=== PATIENT | male | born 1970 | race Asian ===

== ENCOUNTER 2024-02-21 19:23 | Inpatient (IN) | payer OTHER ==
[~2024-02-21] VITALS: Ht 188 cm; Wt 95.3 kg
[~2024-02-21 19:23] MED LIST: ASPI-1406 PO; IPRA3AMP9 HHN; LIP40 PO; LISI10TA26 PO; METO25TA6 PO; NITR0.4T49 SL; NITR1OIN TD; ONDA4VIA22 IV; TOPUD PO; [UNRECOGNIZED DRUG - OTHER] IV
[2024-02-21 20:55] LABS: BASOPHILS % 0.7 % (0.0-2.0); EOSINOPHILS % 4.3 % (0.0-5.0); HEMATOCRIT. 35.2 % (42.0-52.0); HEMOGLOBIN. 11.8 g/dL (14.0-18.0); LYMPHOCYTES % 23.9 % (20.0-50.0); MEAN CORPUSCULAR HEMOGLOBIN 32.1 pg (28.0-32.0); MEAN CORPUSCULAR HGB CONC 33.5 g/dL (31.0-37.0); MEAN CORPUSCULAR VOLUME 96.1 fL (80.0-94.0); MEAN PLATELET VOLUME 7.6 fl (7.4-10.4); MONOCYTES % 12.8 % (2.0-8.0); NEUTROPHILS % 58.3 % (40.0-76.0); PLATELET 283 x1000/uL (130-400); RED BLOOD CELL COUNT 3.66 mill/uL (4.7-6.1); RED CELL DISTRIBUTION WIDTH 13.9 % (11.6-14.6); WHITE BLOOD COUNT 5.5 x1000/uL (4.5-11.0)
[2024-02-21 21:00] LABS: CARBON DIOXIDE 27 mEq/L (21-32); CHLORIDE 108 mEq/L (98-107); POTASSIUM 4.1 mEq/L (3.5-5.1); SODIUM 144 mEq/L (136-145)
[2024-02-21 21:01] LABS: CALCIUM 9.7 mg/dL (8.7-10.4)
[2024-02-21 21:03] LABS: PARTIAL THROMBOPLASTIN TIME 29.3 sec (23.4-31.0); PROTHROMBIN TIME 11.1 sec (9.6-11.0)
[2024-02-21 21:05] LABS: CREATININE 0.9 mg/dL (0.6-1.3)
[2024-02-21 21:06] LABS: GLUCOSE 99 mg/dL (70-105); UREA NITROGEN BLOOD 16 mg/dL (9-23)
[2024-02-21 21:07] LABS: TROPONIN I HIGH SENSITIVITY 14 ng/L (3.0-53)
[2024-02-21] MEDS: PIPERACILLIN/TAZO 3.375G/50ML 50 ML IV ONE (22:31)
[2024-02-21] MEDS: VANCOMYCIN 1G PREMIX 200 ML IV ONE (22:35)
[2024-02-21] MEDS: ASPIRIN 81MG TABLET PO ONE (23:42)
[2024-02-22] VITALS (7 sets, daily range): BP systolic 95–123; BP diastolic 71–92; PULSE 90–114; RESP 14–25; TEMP 36.3918–36.9474; O2SAT 96–100
[2024-02-22] MEDS: IOHEXOL-350 100 ML BOTTLE ONE (00:31)
[2024-02-22] MEDS ORDERED: CLONIDINE 0.1MG TABLET PO PRN (01:15)
[2024-02-22] MEDS ORDERED: ONDANSETRON HCL 4MG/2ML INJ IV PRN (01:15)
[2024-02-22] MEDS ORDERED: ACETAMINOPHEN 325MG TABLET PO PRN (01:15)
[2024-02-22] MEDS ORDERED: MAGNESIUM/ALUMINUM HYDROXIDE/SIMETHICONE 30ML UDC PO PRN (01:15)
[2024-02-22] MEDS ORDERED: NITROGLYCERIN 0.4MG TABLET SL SL PRN (01:15)
[2024-02-22] MEDS ORDERED: IPRATROPIUM/ALBUTEROL 0.5-3(2.5)MG/3ML NEB HHN PRN (01:15)
[2024-02-22 04:40] LABS: CLARITY URINE CLEAR (CLEAR); COLOR URINE YELLOW (YELLOW); GLUCOSE URINE NEGATIVE (NEGATIVE); KETONES URINE 1+ (NEGATIVE); LEUKOCYTE ESTERASE URINE NEGATIVE (NEGATIVE); NITRITE URINE NEGATIVE (NEGATIVE); OCCULT BLOOD URINE NEGATIVE (NEGATIVE); PH URINE 5.5 (4.5-8.0); PROTEIN URINE TRACE (NEGATIVE); SPECIFIC GRAVITY URINE 1.076 (1.005-1.030)
[2024-02-22 04:54] LABS: *AMPHETAMINES SCREEN URINE NEGATIVE (NEGATIVE)
[2024-02-22 04:55] LABS: *BARBITURATES SCREEN URINE NEGATIVE (NEGATIVE); *BENZODIAZEPINES SCREEN URINE NEGATIVE (NEGATIVE); *COCAINE SCREEN URINE NEGATIVE (NEGATIVE); CANNABINOID URINE SCREEN NEGATIVE (NEGATIVE); ECSTASY MDMA SCREEN URINE NEGATIVE (NEGATIVE); METHADONE URINE SCREEN NEGATIVE (NEGATIVE); OPIATES URINE SCREEN NEGATIVE (NEGATIVE); PHENCYCLIDINE URINE SCREEN NEGATIVE (NEGATIVE)
[2024-02-22 06:00] LABS: RBC URINE 0-2 /hpf (0-2); WBC URINE 0-2 /hpf (0-2)
[2024-02-22 06:01] LABS: BACTERIA URINE NONE SEEN; CALCIUM OXALATE CRYSTALS URINE 1+ /lpf; SQUAMOUS EPITHELIAL CELL URINE NONE SEEN /lpf (RARE/1+)
[2024-02-22 07:21] LABS: HEMATOCRIT. 31.5 % (42.0-52.0); HEMOGLOBIN. 10.1 g/dL (14.0-18.0); MEAN CORPUSCULAR HEMOGLOBIN 30.9 pg (28.0-32.0); MEAN CORPUSCULAR HGB CONC 32.2 g/dL (31.0-37.0); MEAN CORPUSCULAR VOLUME 95.8 fL (80.0-94.0); MEAN PLATELET VOLUME 7.7 fl (7.4-10.4); PLATELET 256 x1000/uL (130-400); RED BLOOD CELL COUNT 3.28 mill/uL (4.7-6.1); RED CELL DISTRIBUTION WIDTH 14.1 % (11.6-14.6)
[2024-02-22 07:34] LABS: CARBON DIOXIDE 25 mEq/L (21-32); CHLORIDE 109 mEq/L (98-107); POTASSIUM 3.6 mEq/L (3.5-5.1); SODIUM 143 mEq/L (136-145)
[2024-02-22 07:35] LABS: CALCIUM 9.3 mg/dL (8.7-10.4)
[2024-02-22 07:36] LABS: TROPONIN I HIGH SENSITIVITY 19 ng/L (3.0-53)
[2024-02-22 07:37] LABS: DIFFERENTIAL COMMENT 1
[2024-02-22 07:39] LABS: CREATININE 0.7 mg/dL (0.6-1.3); GLUCOSE 90 mg/dL (70-105)
[2024-02-22 07:40] LABS: LDL CHOLESTEROL 50 mg/dL (5-100); THYROID STIMULATING HORMONE 0.81 uIU/mL (0.55-4.78); TRIGLYCERIDE 96 mg/dL (0-150); UREA NITROGEN BLOOD 12 mg/dL (9-23)
[2024-02-22 07:41] LABS: ALANINE AMINOTRANSFERASE 24 IU/L (10-49); ALBUMIN 3.9 g/dL (3.2-4.8); ASPARTATE AMINOTRANSFERASE 29 IU/L (<34); CHOLESTEROL 85 mg/dL (<200); HDL CHOLESTEROL 22 mg/dL (>55)
[2024-02-22 07:42] LABS: BILIRUBIN DIRECT 0.3 mg/dL (<=3.0); BILIRUBIN TOTAL 0.8 mg/dL (0.1-1.0); PROTEIN TOTAL 6.9 g/dL (6.0-8.3)
[2024-02-22] MEDS ORDERED: DEXTROSE 50% WATER 50ML SYRINGE IV PRN (08:30)
[2024-02-22] MEDS ORDERED: OXYMETAZOLINE HCL NASAL SPRAY 15ML BOTHNSTRLS SCH (09:00)
[2024-02-22] MEDS: BLOOD SUGAR DIAGNOSTIC STRIP TEST SCH (11:50)
[2024-02-22] MEDS ORDERED: PHENYLEPHRINE HCL 0.5% 15ML NASAL SPRAY BOTHNSTRLS SCH (12:00)
[2024-02-22] MEDS: INSULIN LISPRO 100 UNITS/ML SUBCUT SCH (12:20)
[2024-02-22] MEDS ORDERED: CEFEPIME 1GM IN DEXT 5% 50ML IV SCH (16:15)
[2024-02-22] MEDS: CEFEPIME 1GM/50ML 50 ML IV SCH (19:03)
[2024-02-22] MEDS: ATORVASTATIN CALCIUM 20MG TABLET PO SCH (21:11)
[2024-02-22 22:44] LABS: PLATELET ESTIMATE NORMAL
[2024-02-22] MEDS: GUAIFENESIN 200MG/10ML SUGAR FREE UDC PO PRN (23:23)
[2024-02-23] VITALS (25 sets, daily range): BP systolic 101–142; BP diastolic 68–97; PULSE 78–121; RESP 14–31; TEMP 36.44736–37.05852; O2SAT 96–100
[2024-02-23] MEDS: ACETAMINOPHEN 325MG TABLET PO PRN (00:15)
[2024-02-23] MEDS ORDERED: ADENOSINE 3 MG/ML 2ML VIAL IV NR (06:00)
[2024-02-23] MEDS: METOPROLOL TARTRATE 5MG/5ML VIAL IV NR (06:14)
[2024-02-23] MEDS ORDERED: METO25TA6 PO (06:32)
[2024-02-23 07:53] LABS: BASOPHILS % 0.6 % (0.0-2.0); EOSINOPHILS % 3.1 % (0.0-5.0); HEMATOCRIT. 34.2 % (42.0-52.0); HEMOGLOBIN. 11.2 g/dL (14.0-18.0); LYMPHOCYTES % 18.2 % (20.0-50.0); MEAN CORPUSCULAR HEMOGLOBIN 31.4 pg (28.0-32.0); MEAN CORPUSCULAR HGB CONC 32.7 g/dL (31.0-37.0); MEAN PLATELET VOLUME 7.6 fl (7.4-10.4); MONOCYTES % 14.3 % (2.0-8.0); NEUTROPHILS % 63.8 % (40.0-76.0); PLATELET 314 x1000/uL (130-400); RED BLOOD CELL COUNT 3.56 mill/uL (4.7-6.1); RED CELL DISTRIBUTION WIDTH 13.8 % (11.6-14.6); WHITE BLOOD COUNT 5.9 x1000/uL (4.5-11.0)
[2024-02-23 08:06] LABS: PROTHROMBIN TIME 11.5 sec (9.6-11.0)
[2024-02-23 08:08] LABS: CALCIUM 9.8 mg/dL (8.7-10.4); CARBON DIOXIDE 23 mEq/L (21-32); CHLORIDE 106 mEq/L (98-107); POTASSIUM 3.9 mEq/L (3.5-5.1); SODIUM 142 mEq/L (136-145)
[2024-02-23 08:14] LABS: CREATININE 0.9 mg/dL (0.6-1.3); GLUCOSE 121 mg/dL (70-105); UREA NITROGEN BLOOD 14 mg/dL (9-23)
[2024-02-23 08:16] LABS: PHOSPHORUS 4.2 mg/dL (2.5-4.9)
[2024-02-23] MEDS ORDERED: DOXA4TAB3 PO (12:29)
[2024-02-23] MEDS ORDERED: LOSA-413 PO (12:29)
[2024-02-23] MEDS ORDERED: AMLO10TA4 PO (12:29)
[2024-02-23] MEDS ORDERED: METO-539 PO (12:29)
[2024-02-23] MEDS ORDERED: MIDAZOLAM HCL 2 MG/2 ML VIAL IV NR (16:30)
[2024-02-23] MEDS ORDERED: MORPHINE SULFATE 2 MG/ML INJ (NOT FOR IM USE) IV NR (16:30)
[2024-02-23] MEDS: CEFEPIME 2GM/100ML 100 ML IV SCH (16:47)
[2024-02-23] MEDS: MIDAZOLAM HCL 2 MG/2 ML VIAL IV PRN (16:49)
[2024-02-23] MEDS: MORPHINE SULFATE 4 MG/ML INJ (FOR IV/IM USE) IV NR (16:49)
[2024-02-23] MEDS: LIDOCAINE HCL 1% 20ML VIAL INFIL NR (17:35)
[2024-02-23] MEDS ORDERED: NALOXONE HCL 0.4MG/ML VIAL IV PRN (19:15)
[2024-02-23] MEDS: HYDROCODONE/ACETAMINOPHEN 5/325MG TABLET PO PRN (19:28)
[2024-02-23] MEDS: METOPROLOL TARTRATE 50MG TABLET PO SCH (20:57)
[2024-02-23 22:20] LABS: HEMATOCRIT 32.2 % (42.0-52.0); HEMOGLOBIN 10.6 g/dL (14.0-18.0)
[2024-02-23 23:28] LABS: BODY FLUID MONOCYTES 4 %; BODY FLUID RBC 2615000 /cu mm (0-2000); BODY FLUID WBC 175 /cu mm (0-200)
[2024-02-24] VITALS (36 sets, daily range): BP systolic 80–126; BP diastolic 46–85; PULSE 74–96; RESP 14–28; TEMP 36.3918–36.83628; O2SAT 95–100
[2024-02-24 06:46] LABS: HEMATOCRIT 31.5 % (42.0-52.0); HEMOGLOBIN 10.5 g/dL (14.0-18.0); MEAN CORPUSCULAR HGB CONC 33.3 g/dL (31.0-37.0); MEAN CORPUSCULAR VOLUME 96.1 fL (80.0-94.0); PLATELET 262 x1000/uL (130-400); RED BLOOD CELL COUNT 3.28 mill/uL (4.7-6.1); RED CELL DISTRIBUTION WIDTH 13.8 % (11.6-14.6); WHITE BLOOD COUNT 6.6 x1000/uL (4.5-11.0)
[2024-02-24 06:56] LABS: CALCIUM 8.9 mg/dL (8.7-10.4); CARBON DIOXIDE 27 mEq/L (21-32); CHLORIDE 107 mEq/L (98-107); POTASSIUM 3.9 mEq/L (3.5-5.1); SODIUM 142 mEq/L (136-145)
[2024-02-24 07:01] LABS: CREATININE 0.7 mg/dL (0.6-1.3); GLUCOSE 86 mg/dL (70-105)
[2024-02-24 07:02] LABS: UREA NITROGEN BLOOD 15 mg/dL (9-23)
[2024-02-24 07:03] LABS: PHOSPHORUS 3.6 mg/dL (2.5-4.9)
[2024-02-24] MEDS: POTASSIUM CHLORIDE 20MEQ TABLET SR PO NR (09:00)
[2024-02-24] MEDS: PANTOPRAZOLE SODIUM 40 MG/VIAL IV SCH (09:00)
[2024-02-24] MEDS: MAGNESIUM 2 G PREMIX 50 ML IV NR (09:00)
[2024-02-24] MEDS: METOPROLOL TARTRATE 25MG TABLET PO SCH (20:32)
[2024-02-25] VITALS (7 sets, daily range): BP systolic 96–126; BP diastolic 56–84; PULSE 77–100; RESP 14–23; TEMP 36.3918–37.2252; O2SAT 95–98
[2024-02-25 08:37] LABS: HEMATOCRIT 31.8 % (42.0-52.0); HEMOGLOBIN 10.5 g/dL (14.0-18.0); MEAN CORPUSCULAR HEMOGLOBIN 30.9 pg (28.0-32.0); MEAN CORPUSCULAR HGB CONC 32.8 g/dL (31.0-37.0); MEAN CORPUSCULAR VOLUME 94.1 fL (80.0-94.0); PLATELET 271 x1000/uL (130-400); RED BLOOD CELL COUNT 3.38 mill/uL (4.7-6.1); RED CELL DISTRIBUTION WIDTH 13.9 % (11.6-14.6); WHITE BLOOD COUNT 5.5 x1000/uL (4.5-11.0)
[2024-02-25 08:42] LABS: CHLORIDE 108 mEq/L (98-107); POTASSIUM 3.7 mEq/L (3.5-5.1); SODIUM 141 mEq/L (136-145)
[2024-02-25 08:43] LABS: CALCIUM 8.6 mg/dL (8.7-10.4); CARBON DIOXIDE 28 mEq/L (21-32)
[2024-02-25 08:48] LABS: CREATININE 0.7 mg/dL (0.6-1.3); GLUCOSE 135 mg/dL (70-105); UREA NITROGEN BLOOD 14 mg/dL (9-23)
[2024-02-25] MEDS: ASCORBIC ACID 500 MG TABLET PO SCH (23:04)
[2024-02-25] MEDS: MULTIVITAMINS,THER W-MINERALS TABLET PO SCH (23:04)
[2024-02-26] VITALS (7 sets, daily range): BP systolic 105–123; BP diastolic 58–82; PULSE 78–100; RESP 18–20; TEMP 36.44736–36.78072; O2SAT 96–99
[2024-02-26 07:50] LABS: CHLORIDE 106 mEq/L (98-107); POTASSIUM 3.4 mEq/L (3.5-5.1); SODIUM 141 mEq/L (136-145)
[2024-02-26 07:51] LABS: CALCIUM 8.8 mg/dL (8.7-10.4); CARBON DIOXIDE 27 mEq/L (21-32)
[2024-02-26 07:56] LABS: CREATININE 0.7 mg/dL (0.6-1.3); GLUCOSE 100 mg/dL (70-105); UREA NITROGEN BLOOD 11 mg/dL (9-23)
[2024-02-26 07:58] LABS: PHOSPHORUS 3.8 mg/dL (2.5-4.9)
[2024-02-26 08:10] LABS: HEMATOCRIT 29.6 % (42.0-52.0); HEMOGLOBIN 9.7 g/dL (14.0-18.0); MEAN CORPUSCULAR HEMOGLOBIN 30.8 pg (28.0-32.0); MEAN CORPUSCULAR HGB CONC 32.7 g/dL (31.0-37.0); MEAN CORPUSCULAR VOLUME 94.2 fL (80.0-94.0); PLATELET 276 x1000/uL (130-400); RED BLOOD CELL COUNT 3.14 mill/uL (4.7-6.1); RED CELL DISTRIBUTION WIDTH 13.8 % (11.6-14.6); WHITE BLOOD COUNT 4.9 x1000/uL (4.5-11.0)
[2024-02-26] MEDS: PANTOPRAZOLE 40MG DR TABLET PO SCH (08:41)
[2024-02-26] MEDS: POTASSIUM CHLORIDE 20MEQ TABLET SR PO NR (14:49)
[2024-02-27] VITALS: BP 95/69; PULSE 79; RESP 18; TEMP 36.89184; O2SAT 98
[2024-02-27 04:00] VITALS: BP 100/78; PULSE 77; RESP 12; TEMP 36.6696; O2SAT 97
[2024-02-27 07:18] LABS: CARBON DIOXIDE 28 mEq/L (21-32); CHLORIDE 106 mEq/L (98-107); POTASSIUM 3.6 mEq/L (3.5-5.1); SODIUM 141 mEq/L (136-145)
[2024-02-27 07:20] LABS: CALCIUM 9.2 mg/dL (8.7-10.4); HEMATOCRIT 29.9 % (42.0-52.0); HEMOGLOBIN 9.5 g/dL (14.0-18.0); MEAN CORPUSCULAR HEMOGLOBIN 30.4 pg (28.0-32.0); MEAN CORPUSCULAR HGB CONC 31.7 g/dL (31.0-37.0); MEAN CORPUSCULAR VOLUME 95.8 fL (80.0-94.0); PLATELET 292 x1000/uL (130-400); RED BLOOD CELL COUNT 3.12 mill/uL (4.7-6.1); RED CELL DISTRIBUTION WIDTH 13.9 % (11.6-14.6); WHITE BLOOD COUNT 4.6 x1000/uL (4.5-11.0)
[2024-02-27 07:23] LABS: CREATININE 0.7 mg/dL (0.6-1.3)
[2024-02-27 07:24] LABS: UREA NITROGEN BLOOD 12 mg/dL (9-23)
[2024-02-27 07:25] LABS: GLUCOSE 96 mg/dL (70-105)
[2024-02-27 08:00] VITALS: BP 115/72; PULSE 92; RESP 20; TEMP 36.44736; O2SAT 100
[2024-02-27 12:10] VITALS: BP 104/73; PULSE 88; RESP 16; TEMP 36.61404; O2SAT 100
[2024-02-27 15:23] VITALS: BP 118/76; PULSE 97; RESP 19; TEMP 36.89184; O2SAT 97
[2024-02-27 20:00] VITALS: BP 110/70; PULSE 85; RESP 16; TEMP 36.78072; O2SAT 98
[2024-02-28] VITALS: BP 108/74; PULSE 84; RESP 14; TEMP 36.61404; O2SAT 96
[2024-02-28 04:00] VITALS: BP 108/83; PULSE 87; RESP 18; O2SAT 96
[2024-02-28 06:55] LABS: CALCIUM 8.7 mg/dL (8.7-10.4); CARBON DIOXIDE 28 mEq/L (21-32); CHLORIDE 106 mEq/L (98-107); POTASSIUM 3.6 mEq/L (3.5-5.1); SODIUM 141 mEq/L (136-145)
[2024-02-28 07:00] LABS: CREATININE 0.7 mg/dL (0.6-1.3)
[2024-02-28 07:01] LABS: GLUCOSE 102 mg/dL (70-105); UREA NITROGEN BLOOD 15 mg/dL (9-23)
[2024-02-28 07:03] LABS: PHOSPHORUS 3.4 mg/dL (2.5-4.9)
[2024-02-28 07:10] LABS: HEMATOCRIT 29.9 % (42.0-52.0); HEMOGLOBIN 9.6 g/dL (14.0-18.0); MEAN CORPUSCULAR HEMOGLOBIN 30.4 pg (28.0-32.0); MEAN CORPUSCULAR HGB CONC 32.2 g/dL (31.0-37.0); MEAN CORPUSCULAR VOLUME 94.1 fL (80.0-94.0); PLATELET 305 x1000/uL (130-400); RED BLOOD CELL COUNT 3.17 mill/uL (4.7-6.1); WHITE BLOOD COUNT 4.9 x1000/uL (4.5-11.0)
[2024-02-28 08:00] VITALS: BP 109/74; PULSE 86; RESP 17; TEMP 36.6696; O2SAT 98
[2024-02-28 12:00] VITALS: BP 114/70; PULSE 91; RESP 17; TEMP 36.78072; O2SAT 98
[2024-02-28] MEDS: POTASSIUM CHLORIDE 10MEQ TABLET SR PO SCH (15:43)
[2024-02-28] MEDS: FUROSEMIDE 20MG TABLET PO SCH (15:43)
[2024-02-28] MEDS: DOCUSATE SODIUM 100MG CAPSULE PO PRN (15:43)
[2024-02-28 16:00] VITALS: BP 117/69; PULSE 97; TEMP 36.89184; O2SAT 100
[2024-02-28 20:00] VITALS: BP 105/66; PULSE 94; RESP 20; TEMP 36.72516; O2SAT 99
[2024-02-29] VITALS (7 sets, daily range): BP systolic 103–117; BP diastolic 64–78; PULSE 81–100; RESP 10–29; TEMP 36.55848–37.00296; O2SAT 95–99
[2024-02-29 07:13] LABS: CHLORIDE 105 mEq/L (98-107); POTASSIUM 3.4 mEq/L (3.5-5.1); SODIUM 141 mEq/L (136-145)
[2024-02-29 07:14] LABS: CARBON DIOXIDE 29 mEq/L (21-32)
[2024-02-29 07:19] LABS: CREATININE 0.6 mg/dL (0.6-1.3); GLUCOSE 92 mg/dL (70-105)
[2024-02-29 07:20] LABS: UREA NITROGEN BLOOD 14 mg/dL (9-23)
[2024-02-29 07:22] LABS: PHOSPHORUS 3.5 mg/dL (2.5-4.9)
[2024-02-29 07:31] LABS: HEMATOCRIT 30.3 % (42.0-52.0); MEAN CORPUSCULAR HEMOGLOBIN 30.7 pg (28.0-32.0); PLATELET 312 x1000/uL (130-400); RED BLOOD CELL COUNT 3.26 mill/uL (4.7-6.1); RED CELL DISTRIBUTION WIDTH 14.1 % (11.6-14.6); WHITE BLOOD COUNT 5.3 x1000/uL (4.5-11.0)
[2024-02-29] MEDS: POTASSIUM CHLORIDE 20MEQ TABLET SR PO NR (08:59)
[2024-02-29] MEDS: POTASSIUM CHLORIDE 10MEQ TABLET SR PO NR (12:26)
[2024-02-29] MEDS: HYDROCODONE/ACETAMINOPHEN 5/325MG TABLET PO PRN (15:59)
[2024-03-01 04:00] VITALS: PULSE 88; RESP 15; TEMP 36.61404; O2SAT 92
[2024-03-01 04:49] VITALS: BP 109/77; PULSE 88; RESP 20; O2SAT 98
[2024-03-01 07:28] LABS: CALCIUM 8.3 mg/dL (8.7-10.4); CARBON DIOXIDE 28 mEq/L (21-32); CHLORIDE 106 mEq/L (98-107); POTASSIUM 3.9 mEq/L (3.5-5.1); SODIUM 142 mEq/L (136-145)
[2024-03-01 07:34] LABS: CREATININE 0.7 mg/dL (0.6-1.3); GLUCOSE 96 mg/dL (70-105); UREA NITROGEN BLOOD 12 mg/dL (9-23)
[2024-03-01 07:36] LABS: PHOSPHORUS 3.5 mg/dL (2.5-4.9)
[2024-03-01 08:00] VITALS: BP 119/80; PULSE 97; RESP 16; TEMP 36.83628; O2SAT 99
[2024-03-01 08:09] LABS: HEMATOCRIT 29.4 % (42.0-52.0); HEMOGLOBIN 9.7 g/dL (14.0-18.0); MEAN CORPUSCULAR HEMOGLOBIN 30.9 pg (28.0-32.0); MEAN CORPUSCULAR VOLUME 93.6 fL (80.0-94.0); PLATELET 333 x1000/uL (130-400); RED BLOOD CELL COUNT 3.14 mill/uL (4.7-6.1); RED CELL DISTRIBUTION WIDTH 13.7 % (11.6-14.6); WHITE BLOOD COUNT 5.3 x1000/uL (4.5-11.0)
[2024-03-01] MEDS ORDERED: NALOXONE HCL 0.4MG/ML VIAL IV PRN (10:45)
[2024-03-01 12:00] VITALS: BP 132/70; PULSE 82; RESP 19; TEMP 36.6696; O2SAT 98
[2024-03-01] MEDS: POTASSIUM CHLORIDE 10MEQ TABLET SR PO NR (14:09)
[2024-03-01] MEDS: MAGNESIUM 1 G PREMIX 100 ML IV NR (14:12)
[2024-03-01 16:00] VITALS: BP 100/65; PULSE 88; RESP 14; TEMP 36.78072; O2SAT 98
[2024-03-01 19:53] VITALS: BP 115/73; PULSE 93; RESP 22; TEMP 36.72516; O2SAT 99
[2024-03-02 00:26] VITALS: BP 104/70; PULSE 91; RESP 16; TEMP 36.89184; O2SAT 98
[2024-03-02 04:00] VITALS: BP 112/68; PULSE 96; RESP 19; TEMP 36.83628; O2SAT 98
[2024-03-02 06:49] LABS: CHLORIDE 105 mEq/L (98-107); SODIUM 141 mEq/L (136-145)
[2024-03-02 06:50] LABS: CARBON DIOXIDE 30 mEq/L (21-32)
[2024-03-02 06:51] LABS: CALCIUM 9.2 mg/dL (8.7-10.4)
[2024-03-02 06:56] LABS: CREATININE 0.7 mg/dL (0.6-1.3); GLUCOSE 93 mg/dL (70-105); UREA NITROGEN BLOOD 10 mg/dL (9-23)
[2024-03-02 07:11] LABS: HEMATOCRIT 30.8 % (42.0-52.0); MEAN CORPUSCULAR HEMOGLOBIN 30.4 pg (28.0-32.0); MEAN CORPUSCULAR HGB CONC 32.5 g/dL (31.0-37.0); MEAN CORPUSCULAR VOLUME 93.7 fL (80.0-94.0); PLATELET 337 x1000/uL (130-400); RED BLOOD CELL COUNT 3.29 mill/uL (4.7-6.1); RED CELL DISTRIBUTION WIDTH 14.1 % (11.6-14.6); WHITE BLOOD COUNT 5.5 x1000/uL (4.5-11.0)
[2024-03-02 08:00] VITALS: BP 98/73; PULSE 88; RESP 17; TEMP 36.9474; O2SAT 98
[2024-03-02 12:00] VITALS: BP 125/78; PULSE 88; RESP 21; TEMP 37.16964; O2SAT 99
[2024-03-02] MEDS ORDERED: FURO20TA4 PO (14:42)
[2024-03-02] MEDS ORDERED: ATOR20TA PO (14:42)
[2024-03-02] MEDS ORDERED: METO25TA6 PO (14:42)
[2024-03-02] MEDS ORDERED: POTA-189 PO (14:42)
[2024-03-02 16:00] VITALS: BP 130/83; PULSE 88; RESP 19; TEMP 36.72516; O2SAT 99
[2024-03-02 17:12] VITALS: BP 130/83; PULSE 88; TEMP 98.1; O2SAT 99
== END 2024-03-02 17:42 | disposition home or self-care (01) | DRG 143 ==
LOC: ER 19:23 → 3WST 23:40 → EDBEDREQ 02-22 00:06 → EDBEDREQTM 02-22 00:06 → CVICU 02-23 15:30 → 3WST 02-24 16:10
PROVIDERS: ADMIT Internal Medicine; ATTEND Internal Medicine
PROC: 0W9B30Z Drainage of Left Pleural Cavity with Drainage Device, Percutaneous Approach (ICD-10-PCS; principal; 2024-02-23)
DX: J94.2 Hemothorax (principal); J96.01 Acute respiratory failure with hypoxia; I47.10 Supraventricular tachycardia, unspecified; J93.9 Pneumothorax, unspecified; E11.9 Type 2 diabetes mellitus without complications; D64.9 Anemia, unspecified; E78.5 Hyperlipidemia, unspecified; E87.6 Hypokalemia; Z20.822 Contact with and (suspected) exposure to COVID-19; I48.92 Unspecified atrial flutter; E83.42 Hypomagnesemia; I25.10 Atherosclerotic heart disease of native coronary artery without angina pectoris; J98.11 Atelectasis; I10 Essential (primary) hypertension; Z95.1 Presence of aortocoronary bypass graft; Z79.4 Long term (current) use of insulin; Z79.84 Long term (current) use of oral hypoglycemic drugs; Z79.899 Other long term (current) drug therapy; Z82.49 Family history of ischemic heart disease and other diseases of the circulatory system
CPT/HCPCS: 36415; 71045; 71275; 76604; 80048; 80061; 80076; 80305; 81003; 82962; 83036; 83605; 83615; 83735; 83880; 83986; 84100; 84443; 84484; 85014; 85018; 85025; 85027; 85044; 85379; 87426; 93005; 93306; 99285; J0692; J1815; J2250; J2270; J2470; J2543; J3370; J3475; J3490; Q9967